=== PATIENT | female | born 1940 | race Caucasian/White ===

== ENCOUNTER 2019-12-07 00:20 | Emergency (ER) | payer OTHER, MEDICARE ==
[~2019-12-07] VITALS: Ht 160 cm; Wt 72.6 kg
[2019-12-07 00:25] VITALS: BP_SYST 156
--- NOTE | 2019-12-07 00:25 | NUR ---
Patient triaged and placed in waiting room. VSS and patient appears in no acute distress at this time. Accompanied by SELF, awaiting available bed, and MD notified of need for MSE.
--- NOTE | 2019-12-07 00:36 | NUR ---
Patient to ER bed 5 to gown for evaluation. Side rails up. Report given to Duc PALACIO.
--- NOTE | 2019-12-07 00:46 | NUR ---
Patient AAO x 4 ambulates to ER bed 05 with complaints of 3/10 L calf pain radiating to inner L thigh x 1 hr. She describes the pain as "not bad." Denies taking medication for pain control. History of arrythmia, hypertension, asthma, and glaucoma. Even chest rise and fall with respirations. Will continue to monitor.
--- NOTE | 2019-12-07 01:05 | NUR ---
ER Dr. Martinez at bedside examining patient.
[2019-12-07 01:53] LABS: BASOPHILS # (AUTO) 0.1 K/uL (0.0-0.2); BASOPHILS % (AUTO) 2.2 % (0.0-2.0); EOSINOPHILS # (AUTO) 0.2 K/uL (0.0-0.4); EOSINOPHILS % (AUTO) 2.5 % (0.0-4.0); HEMATOCRIT 36.7 % (36-48); HEMOGLOBIN 12.5 g/dL (12.0-16.0); LYMPHOCYTES # (AUTO) 2.1 K/uL (1.0-5.5); LYMPHOCYTES % (AUTO) 32.3 % (20.5-51.5); MEAN CORPUSCULAR HEMOGLOBIN 32 pg (27-31); MEAN CORPUSCULAR HGB CONC 34 % (32-36); MEAN CORPUSCULAR VOLUME 95 fL (79.0-98.0); MONOCYTES # (AUTO) 0.8 K/uL (0.0-1.0); MONOCYTES % (AUTO) 11.9 % (1.7-9.3); NEUTROPHILS # (AUTO) 3.3 K/uL (1.8-7.7); NEUTROPHILS % (AUTO) 51.1 % (40.0-70.0); PLATELET COUNT (AUTO) 343 K/uL (130-430); RED BLOOD CELL COUNT(AUTO) 3.87 MIL/uL (4.2-6.2); RED CELL DISTRIBUTION WIDTH 12.7 % (9.0-15.0); WHITE BLOOD COUNT (AUTO) 6.5 K/uL (4.8-10.8)
[2019-12-07 02:13] LABS: ANION GAP 4 (5-15); CALCIUM 9.3 mg/dL (8.4-11.0); CHLORIDE 90 mmol/L (98-107); CREATININE 0.68 mg/dL (0.55-1.30); GLUCOSE 93 mg/dL (70-99); POTASSIUM 3.3 mmol/L (3.5-5.1); SODIUM SERUM 122 mmol/L (136-145); UREA NITROGEN, BLOOD 8 mg/dL (8-21)
[2019-12-07 02:18] LABS: ALANINE AMINOTRANSFERASE 35 U/L (12-78); ALBUMIN 3.8 g/dL (3.4-4.8); ASPARTATE AMINOTRANSFERASE 27 U/L (10-37); TOTAL BILIRUBIN 0.5 mg/dL (0.0-1.0)
[2019-12-07] MEDS ORDERED: NACL 0.9% 1,000 ML IV ONE (02:30)
--- NOTE | 2019-12-07 02:48 | NUR ---
#20 gauge angiocath placed to R forearm. Use of asceptic technique. Opsite placed over site. Blood return noted. Flushed with 10 mL of normal saline. No evidence of infiltration noted. Patient tolerated well.
--- NOTE | 2019-12-07 03:20 | NUR ---
Care endorsed to Randy PALACIO
[2019-12-07] MEDS ORDERED: SODIUM CHLORIDE 500 MG TABLET PO ONE (04:30)
[2019-12-07 05:56] VITALS: BP_SYST 150
--- NOTE | 2019-12-07 05:56 | NUR ---
Patient given written and verbal discharge instructions and verbalizes understanding. ER MD discussed with patient the results and treatment provided. Patient in stable condition. ID arm band removed. IV catheter removed intact and dressing applied, no active bleeding. N RX given. Patient educated on pain management and to follow up with PMD. Pain Scale 0/10. Opportunity for questions provided and answered.
== END 2019-12-07 05:56 | disposition home or self-care (01) ==
LOC: SED 00:20
DX: E87.1 Hypo-osmolality and hyponatremia (principal); R60.0 Localized edema; J45.909 Unspecified asthma, uncomplicated; I10 Essential (primary) hypertension; H40.9 Unspecified glaucoma; Z90.49 Acquired absence of other specified parts of digestive tract
CPT/HCPCS: 36415; 80053; 84295; 85025; 85379; 93970; 99284; J7030